=== PATIENT | female | born 1990 | race Caucasian/White ===

== ENCOUNTER 2017-08-24 15:06 | Emergency (ER) | payer OTHER ==
--- NOTE | 2017-08-24 15:54 | ED Physician Chart ---
ED Chief Complaint/HPI - Patient Information Date Seen:: 08/24/17 Time Seen:: 15:40 Chief Complaint:: chest pain History of Present Illness:: Patient's had chest pain intermittently for the last 2 weeks. Chest pain is intermittently pleuritic and radiates down her left arm. Patient's had no recent cough. She has had left knee and left lower leg pain for last 2 months. Patient's had recent laboratory tests and her platelets were 414,000 and her HDL was 35. Allergies:: Allergies Allergy/AdvReac Type Severity Reaction Status Date / Time No Known Allergies Allergy Verified 08/24/17 15:37 Vitals:: Vital Signs - 8 hr 08/24/17 15:22 HR 98 RR 16 BP 142/70 O2 Sat % 99 Historian:: Patient Review:: Nurse's Note Reviewed ED Review of Systems - Review of Systems General/Constitutional: No fever, No chills Skin: No skin lesions Head: No headache Eyes: No loss of vision ENT: No earache Neck: No neck pain Cardio Vascular: Chest pain Pulmonary: No SOB GI: No nausea, No vomiting, No diarrhea G/U: No dysuria Musculoskeletal: No bone or joint pain, No back pain, No muscle pain Endocrine: No polyuria, No polydipsia Psychiatric: No prior psych history Hematopoietic: No bruising Allergic/Immuno: No urticaria Neurological: No syncope ED Past Medical History - Past Medical History Past Medical History: Other (allergies to foods, pets and environmental) Family History: Diabetes Melitus, HTN Social History: Non Smoker, No Alcohol Surgical History: , other (2 sections) Psychiatricy History: None Medication: None Family Medical History - Family Member Mother History Unknown: Yes Ethnicity: Living Status: Still Living ED Physical Exam - Physical Examination General/Constitutional: Well-developed, well-nourished, Alert, No distress Head: Atraumatic Eyes: Lids, conjuctiva normal, PERRL Skin: Nl inspection, No rash ENMT: External ears, nose nl, TM canals nl, Nasal exam nl, Lips, teeth, gums nl , Oropharynx nl, Tonsils nl Neck: No nuchal rigidity Respiratory: Nl effort/Exclusion, Clear to Auscultation, No Wheeze/Rhonchi/Rales Cardio Vascular: RRR, No murmur, gallop, rubs, NL S1 S2 GI: No tenderness/rebounding/guarding, No organomegaly, No hernia, Normal BS's, Nondistended, No mass/bruits : No CVA tenderness Other Extremities comments:: Tenderness left knee and left lower leg Neuro/Psych: Alert/oriented, No focal deficits Misc: No paraspinal tenderness ED Labs/Radiology/EKG Results - Lab Results Results: Laboratory Results - last 24 hr 08/24/17 08/24/17 08/24/17 16:12 16:12 16:37 WBC 13.6 H RBC 5.17 H Hgb 13.9 Hct 41.5 MCV 80.2 L MCH 26.9 L MCHC Differential 33.5 RDW 12.7 Plt Count 442 H MPV 8.3 Neutrophils % 67.4 Lymphocytes % 22.6 Monocytes % 7.2 Eosinophils % 2.8 Basophils % 0.0 Whole Bld Lactic Acid 0.80 Urine Source [place] Urine Color YELLOW Urine Clarity CLEAR Urine pH 6.5 Ur Specific [place] 1.010 Urine Protein NEGATIVE Urine Glucose (UA) NEGATIVE Urine Ketones NEGATIVE Urine Blood NEGATIVE Urine Nitrate NEGATIVE Urine Bilirubin NEGATIVE Urine Urobilinogen 0.2 Ur Leukocyte Esterase NEGATIVE Urine RBC NONE SEEN Urine WBC 0-2 Ur Epithelial Cells FEW Urine Bacteria FEW - EKG Interpretations Rate & Rhythm: normal sinus rhythm with a rate of 91 [place]: normal Comments:: Q waves in II, III, and avF ED Assessment - Assessment General Assessment: Patient has neither a heart or a lung problem. Venous Doppler was negative for DVT. Patient's platelet count of 442,000 should not cause a problem. Patient has a leukocytosis of 13,600 WBCs are without a left shift. Urinalysis was done to make sure patient does not have a urinary tract infection. Urinalysis returned as normal. ED Septic Shock - . Is Septic Shock (SBP<90, OR Lactate>4 mmol\L) present?: No - <6hrs of presentation: Vital Signs: Vital Signs - 8 hr 08/24/17 15:22 HR 98 RR 16 BP 142/70 O2 Sat % 99 ED Reassessment (Disposition) - Reassessment Reassessment Condition:: Unchanged - Diagnosis Diagnosis:: Atypical chest pain; leukocytosis; thrombocytosis - Aftercare/Follow up Instructions Aftercare/Follow-Up Instructions:: Refer to Discharge Instructions - Patient Disposition Discharge/Transfer:: Home Condition at Disposition:: Stable, Unchanged
[2017-08-24 16:19] LABS: % EOSINOPHILS 2.8 % (0.0-5.0); % LYMPHOCYTES 22.6 % (20.0-50.0); % MONOCYTES 7.2 % (2.0-10.0); % NEUTROPHILS 67.4 % (40.0-80.0); EOSINOPHILE ABSOLUTE 0.4 Th/cmm (0.1-0.4); HEMATOCRIT 41.5 % (41.0-60); HEMOGLOBIN 13.9 gm/dL (12-16); LYMPHOCYTE ABSOLUTE 3.1 Th/cmm (1.5-3.0); MEAN CELL VOLUME 80.2 fl (81-100); MEAN CORPUSCULAR HEMOGLOBIN 26.9 pg (27.0-31.0); MEAN CORPUSCULAR HGB CONC 33.5 pg (28.0-36.0); MEAN PLATELET VOLUME 8.3 fl; NEUTROPHILE ABSOLUTE 9.1 Th/cmm (1.8-8.0); PLATELET COUNT 442 Th/cmm (150-400); RED BLOOD COUNT 5.17 Mil/cmm (3.80-5.10); RED CELL DISTRIBUTION WIDTH 12.7 % (11.5-20.0)
[2017-08-24 16:23] LABS: WHITE BLOOD COUNT 13.6 Th/cmm (4.8-10.8)
[2017-08-24 16:42] LABS: URINE MICROSCOPIC INDICATED? YES; URINE SOURCE MIDSTREAM
[2017-08-24 16:44] LABS: URINE BILIRUBIN NEGATIVE (NEGATIVE); URINE BLOOD NEGATIVE (NEGATIVE); URINE GLUCOSE (UA) NEGATIVE (NEGATIVE); URINE KETONE NEGATIVE (NEGATIVE); URINE LEUKOCYTE ESTERASE NEGATIVE (NEGATIVE); URINE NITRATE NEGATIVE (NEGATIVE); URINE PH 6.5 (4.6 - 8.0); URINE PROTEIN NEGATIVE (NEGATIVE); URINE UROBILINOGEN 0.2 E.U./dL (0.2 - 1.0)
[2017-08-24 16:50] LABS: URINE BACTERIA FEW /hpf (NONE SEEN); URINE CLARITY CLEAR (CLEAR); URINE COLOR YELLOW; URINE EPITHELIAL CELLS FEW /lpf (FEW); URINE RBC NONE SEEN /hpf (0-5); URINE WBC 0-2 /hpf (0-5)
--- NOTE | 2017-08-25 07:24 | Diagnostic Imaging Report ---
Left lower extremity DVT study HISTORY: Pain COMPARISON: None Technique: Longitudinal and transverse sonographic images of the left lower extremity veins were obtained with doppler analysis. FINDINGS: There is normal compressibility, augmentation and phasicity of the left common femoral, superficial femoral, popliteal, and posterior tibial veins. No thrombus is visualized. IMPRESSION: No evidence of thrombus within the left lower extremity veins.
== END 2017-08-24 17:20 | disposition home or self-care (01) ==
LOC: ER 15:06
DX: R07.89 Other chest pain (principal); D47.3 Essential (hemorrhagic) thrombocythemia; D72.829 Elevated white blood cell count, unspecified
CPT/HCPCS: 36415-UA; 81001-TC; 83605; 85025-TC; 93005; 93971-TC-LT

== ENCOUNTER 2018-03-01 12:25 | Emergency (ER) | payer OTHER ==
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
== END 2018-03-01 14:04 | disposition home or self-care (01) ==
LOC: ER 12:25
DX: O9A.213 Injury, poisoning and certain other consequences of external causes complicating pregnancy, third trimester (principal); T75.4XXA Electrocution, initial encounter; R10.13 Epigastric pain; Z3A.28 28 weeks gestation of pregnancy; Z98.890 Other specified postprocedural states; W86.8XXA Exposure to other electric current, initial encounter; Y93.89 Activity, other specified; Y92.89 Other specified places as the place of occurrence of the external cause; Y99.8 Other external cause status
CPT/HCPCS: 76815-TC; 93005; Z7502